=== PATIENT | male | born 1960 | race Caucasian/White ===

== ENCOUNTER 2024-12-12 20:23 | Inpatient (IN) | payer BC, SELFPAY ==
[2024-12-12] VITALS (10 sets, daily range): BP systolic 114–170; BP diastolic 72–89; BMI 24.2
--- NOTE | 2024-12-12 18:51 | ED.GENMED ---
History of Present Illness
General
Chief Complaint: Chest Pain
Source: patient
Exam Limitations: none
Time Seen by Provider: 12/12/24 18:51
Nursing documentation reviewed up to this point in time: agreed with
History of Present Illness
History of Present Illness:
Note:
CHIEF COMPLAINT(S)
Chest tightness and fatigue starting Friday night.
HISTORY OF PRESENT ILLNESS
The patient is a 64-year-old male who presents with a chief complaint of chest tightness and fatigue. The symptoms began on Friday night. The patient describes the chest tightness as a 'burning tightness' that persisted throughout the night. He
engaged in normal activities around the house but experienced increased fatigue today, mentioning feeling 'really feeling fatigue' and needing to shut down his activities. No current chest pain is reported. The patient did not take aspirin when the
symptoms began but mentioned taking Advil, which provided little relief. He has a history of atrial fibrillation and is under the care of a horticultural nursery assistant. The patient is currently not experiencing chest pain.
PAST MEDICAL AND SURIGICAL HISTORY
The patient has a known history of atrial fibrillation. He reports no history of diabetes, thyroid issues, blood disorders, or cancers.
CHRONIC MEDICAL CONDITIONS SIGNIFICANTLY AFFECTING CARE
Atrial fibrillation.
MEDICATIONS
The patient is currently taking a medication, metoprolol
PHYSICAL EXAM
General: Alert, no acute distress.
Skin: Warm, dry.
Head: Normocephalic, atraumatic.
Neck: Supple, trachea midline.
Eye, Ears, Nose and Throat: Oral mucosa moist.
Cardiovascular: Normal peripheral perfusion, No edema. S1,S2 no murmurs
Respiratory: Respirations are non-labored.
Gastrointestinal: Abdomen nondistended.
Back: Normal range of motion, Normal alignment.
Musculoskeletal: Normal range of motion, normal strength.
Neurological: Alert and oriented to person, place, time, and situation, No focal neurological deficit observed.
Psychiatric: Cooperative, appropriate mood & affect.
PROBLEM LIST
Acute problems:
- Chest tightness
- Fatigue
Chronic problems:
- Atrial fibrillation
PLAN
1. Administer aspirin and heparin.
2. Provide Berlinta 180 mg and aspirin 324 mg.
3. Communicate with the on-call horticultural nursery assistant for further evaluation and management.
DIFFERENTIAL DIAGNOSIS
The Differential Diagnosis includes, in no particular order and is not limited to:
1. Acute coronary syndrome
2. Myocardial infarction
3. Atrial fibrillation exacerbation
4. Pulmonary embolism
5. Costochondritis
6. Gastroesophageal reflux disease
7. Anxiety-related symptoms
8. Heart failure
9. Pericarditis
10. Aortic dissection
CARE-UPDATE
12/12/24 - 19:
Consulted with Dr. Costa, coverage specialist rn. labor supervisor activated. Administered Burlinta 180 mg, aspirin 324 mg, and heparin 5,000 units. Awaiting arrival of CathLab team and interventional cardiologists for further intervention.
EKG
My independent EKG interpretation is:
- Rhythm: Normal sinus rhythm
- Heart Rate: Not specified
- [place]: Normal axis
- QRS Duration: Normal
- Abnormalities Observed: ST elevation in leads II, III, aVF with reciprocal changes
Disposition:
SUMMARY OF ENCOUNTER
The patient, a 64-year-old male, was seen in the emergency department with symptoms of chest tightness and fatigue that began on Friday night. These symptoms led to the suspicion of an ST-elevation myocardial infarction (STEMI), confirmed by EKG
findings of ST elevation in leads II, III, aVF with reciprocal changes. The patients management included administering aspirin, heparin, and ticagrelor (Brilinta) to address cardiac concerns. The patient is currently pain-free and stable in
preparation for further intervention.
EMERGENCY TREATMENTS ADMINISTERED
Administered aspirin 324 mg, heparin 5,000 units intravenously, and ticagrelor 180 mg.
MANAGEMENT OF THE PATIENTS CARE WAS DISCUSSED WITH
Consulted with Dr. Costa, an coverage specialist rn, who activated the laborer wharf team for possible further intervention.
PLAN
Await the arrival of the CathLab team for potential intervention. Continue monitoring cardiac status and administer medications as needed.
MEDICATION RECONCILIATION
Administered medications:
- Aspirin 324 mg
- Heparin 5,000 units IV
- Ticagrelor 180 mg
MEDICAL DECISION MAKING
- Complexity of Data Reviewed: Chronic conditions affecting care include atrial fibrillation, and differential diagnosis considered includes acute coronary syndrome, myocardial infarction, atrial fibrillation exacerbation, pulmonary embolism,
costochondritis, gastroesophageal reflux disease, anxiety-related symptoms, heart failure, pericarditis, and aortic dissection.
- Data:
Category 1
My independent interpretation of EKG indicates ST elevation in leads II, III, aVF with reciprocal changes.
Category 3
Discussion of management with Dr. Costa, coverage specialist rn, including activation of the laborer wharf for further intervention.
-Risk:
Due to the high risk and complexity of the patients acute presentation and underlying conditions, admission and potential escalation of care were deemed necessary.
DIAGNOSIS
- ST-Elevation Myocardial Infarction (STEMI) - ICD-10 code: I21.0
Past History
Past History
ED Past Medical History: None
ED Past Surgical History: Other (Hernia repair)
Social History
Tobacco: Non-smoker
Alcohol: Occasional
Drug: None
Living: with family
Employment: Employed
Family History
Family History: CAD (Father); Negative Early CAD
Phy Exam
Physical Exam
Physical Exam:
.
Scores
Heart Score for Chest Pain Patients
STEMI patient?: Yes
Course
Orders/Labs/Results
Orders:
Orders
12/12/24 Breakfast
Cholesterol Lowering
At Your Request: Full Participation
Does patient need a safe tray?: No
Cholesterol Lowering: Sodium, 2 Gram
12/12/24 18:44
Electrocardiogram (*1) Urgent
Reason for Study: Chest Pain
12/12/24 18:45
EKG- Treatment ONCE
12/12/24 18:52
Cardiac Monitoring- Treatment ONCE
IV Insert/Care/Rem.- Treatment PRN
12/12/24 19:00
Complete Blood Count/With Diff Urgent
Comprehensive Metabolic Panel Urgent
Glycohemoglobin (HgbA1c) Urgent
Magnesium Urgent
PTT Urgent
Phosphorus Urgent
Prothrombin Time Urgent
Troponin I Urgent
12/12/24 20:00
Admit Patient As Directed
Co-Sign Provider:
Level of Care: Inpatient admission
Assign to:: IVU
Physician / Group: Igor/CASSI until 07:00 then DCA
Diagnosis: Late presentation STEMI.
Patient Condition: Fair
Reason for Hospitalization: Late presentation STEMI.
Expected length of stay greater than two midnights?: Yes
ELOS- Estimated Length of Stay in days: 3
I certify the patient meets the requirements for IP care: Yes
Reason for Overnight Stay: Standard of Care
Code Status As Directed
Resuscitation Status: Full Code
0.9% Sodium Chloride 1000 ml [Nss] 1,000 ml IV PER PROTOCOL
Infusion rate in mL/kg/hr:: 1.5
Infusion rate in mL/hr:: 111
Duration of infusion (hours):: 3
Acetaminophen [Tylenol] 650 mg PO Q4HPRN PRN
Fentanyl Citrate/Pf [Sublimaze] 50 mcg IV [id number] PRN
Midazolam HCl [Versed] 1 mg IV Q5MPRN PRN
Nitroglycerin Sublingual [Nitrostat (Sublingual)] 0.4 mg SL [id number] PRN
Oxycodone/Acetaminophen [Percocet 5/325] 1 tablet PO Q4HPRN PRN
Activity As Directed
Activity Level: Out of Bed- Ad Mehnaz
Activity Frequency: Ad Mehnaz
Development Manager Procedure As Directed
Cardiac Cath Procedure: cardiac catheterization
Notify MD As Directed
Notify physician if: immediately for chest pain or bleeding from access site(s)
Radial Artery Hemostasis Method As Directed
Instructions:: 3 mL out at 1 hour post placement of band
3 mL out at 1 1/2 hours post placement of band
3 mL out at 2 hours post placement of band
Off at 2 1/2 hours post placement of band
If any oozing or hemotoma occurs:: re-inflate band and call provider
Site Checks As Directed
Check access site for bleeding/hematoma: Yes
Comment: on arrival, Q15min x4, Q30min x2, Q1 hr x2, Q2 hr x2, Q4 hr or per
protocol
Vascular Checks As Directed
Location: distal to access site - pulse check
Frequency: Other
Comment: on arrival, Q15min x4, Q30min x2, Q1 hr x2, Q2 hr x2, Q4 hr or per protocol
Venous Foot Pumps As Directed
Location: Bilateral feet
Vital Signs As Directed
Frequency: Other
Additional Instructions:: on arrival, Q15min x4, Q30min x2, Q1 hr x2, Q2 hr x2, then Q4 hr or per unit
protocol
PRN Pain Medication Management As Directed
May give lesser potent ordered pain med per pt: Yes
preference::
Protocol:: Medication orders for pain may be administered in a
manner that supports deferring to patient preference
when the pt is:
- Requesting an ordered lesser potent pain medication.
Least to most potent pain medications are defined
as: acetaminophen < NSAID < tramadol < opioids
(morphine, oxycodone, hydromorphone).
- Requesting a lesser dose of the same medication IF
ORDERED.
- Requesting a less intrusive route of administration
if both routes are prescribed by the provider (PO <
IV).
12/12/24 20:01
DX Deep Vein Thrombosis Video Routine
12/12/24 20:09
Add On- LAB Routine
Tests Added?: HbA1c, Magnesium, Phosphorus.
Electrocardiogram (*1) Stat
Reason for Study: CAD
12/12/24 20:10
EKG PRN [ECG as needed] As Directed
ECG as needed for:: Chest Pain
Rhythm Change
12/12/24 21:00
Atorvastatin [Lipitor] 40 mg PO QPM
12/13/24 06:00
Echo 2D MMode Color/Doppler Routine
Reason for Study: Delayed presentation of STEMI.
Electrocardiogram (*1) IN AM
Reason for Study: CAD
Basic Metabolic Panel IN AM
Cardiovascular Evaluation IN AM
Complete Blood Count/No Diff IN AM
12/13/24 08:00
Aspirin Low Dose EC [Aspir Low (Enteric Coated)] 81 mg PO DAILY
Cholecalciferol (Vitamin D3) [VITAMIN D3 (cholecalciferol)] 25 mcg PO DAILY
Clopidogrel Bisulfate [Plavix] 75 mg PO DAILY
Cyanocobalamin [Vitamin B-12] 1,000 mcg PO DAILY
Metoprolol Xl [Toprol Xl] 12.5 mg PO DAILY
Valacyclovir HCl [Valtrex] 250 mg PO DAILY
12/14/24 06:00
Basic Metabolic Panel IN AM
Abnormal Lab Results
12/12/24
19:00
WBC 11.5 H 10^3/uL
(4.8-10.8)
MCH 32.0 H pg
(27.0-31.0)
Absolute Neuts (auto) 8.9 H 10^3/uL
(1.4-6.5)
Absolute Monos (auto) 1.0 H 10^3/uL
(0.1-0.6)
Neutrophils % 77.8 H %
(42.2-75.2)
Lymphocytes % 12.7 L %
(20.5-51.1)
Glucose 126 H mg/dl
(70-99)
AST 193 H U/L
(17-59)
Troponin I 17.800 H* ng/ml
12/12/24 19:00
12/12/24 19:00
Vital Signs
Initial and Last Documented VS:
Initial Vital Signs
Pulse Resp BP
95 20 170/88
12/12/24 18:53 12/12/24 18:53 12/12/24 18:53
Last Documented Vital Signs
Temp Pulse Resp BP Pulse Ox
98.7 F 84 20 114/73 96
12/12/24 22:43 12/12/24 22:45 12/12/24 22:45 12/12/24 22:45 12/12/24 22:43
*Pulse Oximetry
SaO2: 98
Oxygen Mode of Delivery: Room air
Patient hypoxic: no
*Critical Care Note
Total Time (30-74mins, 75-104mins- exclusive of procedures): Not Applicable
ED Attending Note
-
Portions of this chart may have been created with voice recognition software.� Occasional wrong word or��sound alike� substitutions may have occurred due to the inherent limitations of voice recognition software.
Discharge Plan
Departure
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
Date of Disposition: 12/12/24
Time of Disposition: 19:01
Admit to: labor supervisor
Presentation/result/management discussed w/ accepting MD/DO: Interventional cardiology
Patient with high blood pressure during this ER visit?: Yes
Condition: Good
Discharge Problem:
ST elevation (STEMI) myocardial infarction
Interventions
Interventions:
*Risk Screen - Suicide Last Done: 12/12/24 18:53
*General Assessment Last Done: 12/12/24 19:12
*Neglect/Abuse Screening Last Done: 12/12/24 19:12
*ED- Fall Risk Assessment Last Done: 12/12/24 19:12
*ED COVID-19 Vaccine History Last Done: 12/12/24 19:15
*Nursing Disposition Last Done: 12/12/24 19:25
ED- Cardiac Assessment Last Done: 12/12/24 19:12
Discharge Date and Time
Discharge Date/Time: 12/12/24 19:25
[2024-12-12 19:10] LABS: Hematocrit 48.0 % (39.0-52.0); Hemoglobin 17.1 g/dL (13.0-18.0); Mean Corp Hgb Conc. 35.6 g/dL (33.0-37.0); Mean Corpuscular Volume 89.9 fL (80.0-94.0); Nucleated Red Blood Cells % 0 % (-); Platelet Count 214 10^3/uL (130-400); Red Cell Dist. Width 11.9 % (11.5-14.5)
[2024-12-12 19:20] LABS: INR 1.04; PT 13.9 Sec (11.4-14.6)
[2024-12-12 19:21] LABS: ALT (SGPT) 38 U/L (0-50); APTT 27.8 Sec (23.4-35.0); AST (SGOT) 193 U/L (17-59); Albumin 4.6 g/dl (3.5-5.0); Alkaline Phosphatase 73 U/L (38-126); Blood Urea Nitrogen 17 mg/dl (9-20); Calcium 9.7 mg/dl (8.4-10.2); Carbon Dioxide 27 mmol/L (22-30); Chloride 106 mmol/L (98-107); Glucose 126 mg/dl (70-99); Potassium 3.9 mmol/L (3.5-5.1); Sodium 139 mmol/L (135-145); Total Protein 7.8 g/dl (6.3-8.2); eGFR > 60.00
--- NOTE | 2024-12-12 19:28 | HPS.HSE ---
Family Physician
-
Family Physician:
Chief Complaint
-
Resolved chest pain.
History of Present Illness
64 y/o male with prior PAF s/p ablation, not currently on therapeutic anticoagulation, presenting with resolved chest pain. The patient reports onset of a burning chest pressure two days prior to presentation (Friday evening, presenting Friday
evening). The patient believed it was anxiety, as he has had a history of this in the past, though he admits that he was not particularly anxious. The patient tolerated the pain and used deep breathing exercises to treat what he believed to be
anxiety. He slept poorly last evening, finally getting to sleep around 5 AM after consuming some ibuprofen. He took a nap earlier to day and his chest pain resolved after an additional dose of ibuprofen. He subsequently felt fatigued for the
entire day. After recounting the events to his , the patient decided to be evaluated at [facility]. In the ER. EKG shows inferior ST elevation with Q waves in lead III. The patient is chest pain free at the time of presentation. He denies SOB,
palpitations, syncope or presyncope.
The patient is very physically active and maintains a healthy diet and exercise regimen. He denies allergies, GI/ bleeding and adverse reaction to contrast.
Medical History
Past Medical History
Past Medical History: Reports Arrhythmia (PAF)
Past Surgical History: Reports Cardiac (PVI (2020).)
Social History
Tobacco: Non-smoker
Alcohol: None
Drug: None
Personal:
Living: With Family
Family History
Family History: Not pertinent
Allergies / Home Medications
Allergies reflects when Allergies were last updated in [facility].
Home Medications with original date entered in [facility]
Allergy/Medication List:
Home medications:
Metoprolol succinate 12.5 mg daily.
Valacyclovir 500 mg daily.
CoQ 10
B Vitamin
Glucosamine
Vit D
Allergies:
NKDA.
Review of Systems
-
History Source: Patient and Family
Constitutional: Reports Fatigue
EENT: Reports No Symptoms
Respiratory: Reports No Symptoms
Cardiac: Reports Chest Pain (Resolved.)
Abdomen/GI: Reports No Symptoms
: Reports No Symptoms
Musculoskeletal: Reports No Symptoms
Neurological: Reports No Symptoms
Physical Exam
Vital Signs
Vital Signs
Temp Pulse Resp BP Pulse Ox
37.7 C 97 18 153/89 98
12/12/24 18:59 12/12/24 19:00 12/12/24 19:00 12/12/24 19:00 12/12/24 19:05
Physical Exam
General: Well Developed, Well Nourished, No Apparent Distress, Comfortable and Conversant
HEENT: NormoCephalic, Anicteric, Moist mucous membranes, Atraumatic, Good Dentition, PERRLA, [place] Conjunctivae, No Ptosis, Nose Appears Normal and Ears Appear Normal
Respiratory: Clear and Non Labored Respirations
Cardiac: S1/S2 and Regular Rhythm
Breast: Deferred by me
GI: Soft, Non Tender, Non Distended and Normal Bowel Sounds
Rectal: Deferred by Provider
Genito-urinary: Deferred by me
Musculoskeletal: No Clubbing, No Cyanosis and No Edema
Skin: Warm and Dry
Neuro: AO x 3
Psych: Calm and Intact Judgment/Insight
Laboratory Results
-
12/12/24 19:00
12/12/24 19:00
Laboratory Results
PT 13.9 Sec (11.4-14.6) 12/12/24 19:00
INR 1.04 12/12/24 19:00
APTT 27.8 Sec (23.4-35.0) 12/12/24 19:00
Total Bilirubin 1.1 mg/dl (0.2-1.3) 12/12/24 19:00
AST 193 U/L (17-59) H 12/12/24 19:00
ALT 38 U/L (0-50) 12/12/24 19:00
Alkaline Phosphatase 73 U/L (38-126) 12/12/24 19:00
Data Reviewed
-
Medical Tests (Nuc Med, Echo, EKG etc): Image Personally Visualized and interpreted and Report Reviewed by me
Lab Data: Labs Reviewed by me
Old Records: Reviewed
Impression/Plan
-
Impression/Plan: 64 y/o male with history of PAF s/p prior PVI, not currently on therapeutic anticoagulation, presenting with delayed presentation inferior STEMI.
#Inferior STEMI
-Delayed presentation, currently chest pain free.
-We will proceed with urgent coronary angiography for assessment of coronary anatomy.
-If the patient has > ESTHER 0 flow in the culprit artery, we will proceed with PCI. However, if the patient's artery is completely occluded, given his resolved chest pain, we will consider the infarct completed and defer any revascularization due
to a net deleterious effect (OAT trial).
-Risks/benefits reviewed with patient and .
-Consent is signed and on the chart.
#PAF
-Currently in NSR.
-Rate/Rhythm control with prior ablation, metoprolol succinate.
-CHADS2-Vasc was previously 0, it will probably be at least 1 (vascular disease).
-No current role for therapeutic anticoagulation.
#PPx
-SCD's for DVT/VTE.
-No role for PPI at this time.
#Dispo
-To ammunition assembly laborer, then likely IVU.
-Full code.
[2024-12-12 19:37] LABS: Troponin I 17.800 ng/ml
--- NOTE | 2024-12-12 20:15 | ITS.CL.CATH ---
Manager Process Improvement - Catheterization
Cardiac Catheterization
Procedure Report:
CARDIAC CATHETERIZATION REPORT
Date of Procedure: 12/12/2024
Referring: Hollis Royal D.O.
INDICATION: Late presentation inferior ST elevation myocardial infarction.
PROCEDURE:
1. Left heart catheterization.
2. Coronary angiography.
3. Left ventriculography.
A total of 15 minutes of procedural/moderate sedation was utilized. An independent manager medical writing was present to assist with and help manage the patient's level of consciousness and physiologic status.
ACCESS:
1. 6 [place] right radial artery using a modified Seldinger technique.
CATHETERS:
1. 5 [place]ian JR4.
2. 5 [place]ian JL 3.5.
3. 5 [place]ian angled pigtail.
HEMODYNAMIC DATA
Weight (kg): 73.9
AO (s/d/x, mmHg): 128/80/104
LV (s/x mmHg): 128/5
LEFT VENTRICULOGRAPHY: Performed in an [place] projection. Normal left ventricular size. There is severe hypokinesis of a focal area of the inferolateral wall with normal to hyperdynamic function throughout the remainder of the left ventricle.
Global systolic function is preserved. Left ventricular ejection fraction estimated at 60-65%. There is no mitral valve regurgitation. There is no aortic valve insufficiency. The aortic root, ascending aorta and visualized descending aorta
appear normal.
CORONARY ANGIOGRAPHY
Dominance: Right.
Left Main: Normal size, bifurcating vessel. There is no coronary artery disease.
LAD: Normal size vessel giving rise to 2 diagonals before wrapping around the apex and supplying the distal inferior interventricular septum. There are minor luminal irregularities in the mid vessel. There is a 180 degree hairpin turn
associated with a small myocardial bridge in the distal vessel.
Ramus: Congenitally absent.
Circumflex: Normal size, nondominant vessel giving rise to 2 obtuse marginals. OM1 is a medium size vessel supplying the superior aspect of the lateral wall. OM 2 is a slightly larger vessel supplying the inferolateral wall. The vessel is
acutely occluded in its proximal margin with ESTHER 0 flow.
RCA: Normal size, dominant vessel with notable tortuosity in the proximal margin and a near [place] cro[place] origin. The RPDA supplies the proximal half of the inferior interventricular septum. There is no coronary artery disease.
INTERVENTION(S)
None.
Closure Device: Vascular band.
Radiation (mGy): 194.21
DAP (cm2.Gy): 13.8419
Fluoroscopy time (minutes): 2.3
CONCLUSIONS
1. Right dominant circulation with occlusion of a medium sized OM 2 with ESTHER 0 flow. The patient has been chest pain-free for the last 12 hours. This is consistent with a completed circumflex infarct.
2. Normal left ventricular size with hypokinesis of the mid to distal inferolateral wall (consistent with culprit territory) but preserved global systolic function. LV ejection fraction estimated at 60-65%.
3. Normal filling pressures (LVEDP = 5 mmHg at 73.9 kg).
RECOMMENDATIONS:
1. Expectant management after cardiac catheterization via right radial approach.
2. Limited weight bearing on the right wrist for one week.
3. Given the delayed presentation of the infarct with ESTHER 0 flow in the absence of chest pain, this is consistent with a completed infarct. Revascularization at this time is contraindicated.
4. We will proceed with medical management of this infarct. Dual antiplatelet therapy with aspirin and clopidogrel for at least 12 months, followed by aspirin indefinitely.
5. Aggressive secondary prevention with high-dose, high potency statin. Goal LDL <55. Fasting lipid panel pending.
6. Echocardiogram ordered and pending.
7. Referral to cardiac rehab.
Copy to: Cris Rich M.D., Lissy Terrell M.D.
Donald Costa DO, FACC, FACP
[2024-12-12 20:45] LABS: Magnesium 2.0 mg/dl (1.6-2.3)
[2024-12-12] MEDS: LIPITOR 40 MG PO (22:16)
[2024-12-12] MEDS: MELATONIN 5 MG PO (22:17)
[2024-12-13] VITALS (10 sets, daily range): BP systolic 117–138; BP diastolic 71–86
--- NOTE | 2024-12-13 02:06 | PTCARENOTE ---
Received pt into room 2243 from labourers RN's @ approx. 2014. pt placed on tele, SR w/ HR in the 70's. pt denies any CP or SOB at this time. TR band on, positive radial pulses, sating 98%. Educated pt on activity restrictions. pt verbalizes
understanding. Admission completed--see worklist. pt requesting sleeping aid. Eye mask and ear plugs provided, reached out to Vick Lees NP. Order for Melatonin obtained. Administered per order--see JUN. Plan of care reviewed with pt. pt
oriented to room and call joy. EKG obtained. CAD booklet and education provided. Call joy within reach.
--- NOTE | 2024-12-13 02:07 | PTCARENOTE ---
TR band removed at 5. Dressing placed on pt. C.D.I No bleeding or hematoma noted at this time. pt reminded of activity restrictions on right hand.
[2024-12-13] MEDS: TYLENOL 650 MG PO (04:49)
[2024-12-13 04:55] LABS: Hematocrit 43.5 % (39.0-52.0); Hemoglobin 15.9 g/dL (13.0-18.0); Mean Corp Hgb Conc. 36.6 g/dL (33.0-37.0); Mean Corpuscular Volume 90.4 fL (80.0-94.0); Platelet Count 199 10^3/uL (130-400); Red Cell Dist. Width 11.9 % (11.5-14.5)
[2024-12-13 05:23] LABS: Blood Urea Nitrogen 12 mg/dl (9-20); Calcium 8.9 mg/dl (8.4-10.2); Carbon Dioxide 24 mmol/L (22-30); Chloride 108 mmol/L (98-107); Estimated Creatinine Clearance 109 ml/min; Glucose 127 mg/dl (70-99); HDL Cholesterol 61 mg/dl; LDL Cholesterol, Calculated 65 mg/dl; Potassium 3.9 mmol/L (3.5-5.1); Sodium 137 mmol/L (135-145); Very Low Density Lipoprotein 12 mg/dl (0-30); eGFR > 60.00
[2024-12-13] MEDS: PLAVIX 75 MG PO (08:13)
[2024-12-13] MEDS: VITAMIN D3 (cholecalciferol) 25 MCG PO (08:13)
[2024-12-13] MEDS: VITAMIN B-12 1000 MCG PO (08:13)
[2024-12-13] MEDS: ASPIR LOW (ENTERIC COATED) 81 MG PO (08:13)
[2024-12-13] MEDS: TOPROL XL 12.5 MG PO (08:13)
[2024-12-13 10:03] LABS: Troponin I 17.200 ng/ml
[2024-12-13 10:39] LABS: Glycohemoglobin (HgbA1c) 5.6 % (4.0-5.6)
--- NOTE | 2024-12-13 14:37 | CM ---
spoke to pt in room, he is prv indep lives with his in a 2 story home with 1 step to enter. he denies any dc planning needs. he has a cane and a walker to use when needed. plan is for dc to home when medically stable.
--- NOTE | 2024-12-13 15:20 | W.PN.CARDCBS ---
Addendum entered and electronically signed by Katlyn Pineda MD 12/13/24 21:54:
I saw and examined the patient.
The Flasher Adjuster's note was reviewed and I agree with the note.
Comment: Patient with no acute overnight events. Doing well, ambulating without any difficult. Remains CP free. He tells me he had stuttering episodes of CP Friday into friday. He thought it was related to underlying anxiety. He did yard work and
pushed through sxs he tells me coming into ED mainly bc of sxs not subsiding however CP free in ED.
Vitals and labs reviewed. Hgb stable. Creat stable. Trop peaked 17.8
On exam pt is well appearing, NAD, awake, alert and oriented x 3, RR, normal S1 and S2. No m/r/g, abd soft, NT, Nd +BS, warm ext. No LE edema. No e/o hematoma or bruit at access site.
Echo with overall preserved LV fxn. LVEF normal.
Reccomendations:
1. DAPT with ASA and Plavix x 12 months in setting of ACS. High intensity statin with LDL goal less than 55. BB as tolerated.
2. Aggressive management of secodnary risk factors.
3. Cont to monitor for another 24hrs and start discharge planning.
4. We dicussed role of cardiac rehab as outpatient.
5. We discussed role of Mediterranean diet and staying physically active to maintain normal BMI
6. Thankfully overall presevred LV fxn.
7. Outpt cardiology follow up with be arranged upon discharge.
Anticipate dc in next 24hrs if no new changes. All questions and concerns addressed with bedside.
Katlyn Pinead MD, [facility], PSYCHIATRIC
total time spent: 52mins
Original Note:
Today's Communication / Plan
-
New to aspirin and Plavix
New to atorvastatin
EF preserved by echo
Impression / Plan
-
PCP: Dr. Lissy Terrell
Cardiology: Dr. MAY Rich
Impression:
Admitted with chest pain and abnormal EKG 12/12/2024
Late presentation of inferior wall MO 12/12/24
Symptoms started 12/10/2024 PM and initial troponin 17.8
CAD with complete occlusion of OM 2 by cardiac cath 12/12/2024
Preserved EF 60 to 65% by echo 12/13/2024
Paroxysmal A-fib s/p PVI 04/2020
Not chronically anticoagulated due to low [id number] score and patient decision
Echo 12/13/24: Mid inferolateral segment is akinetic, EF 60 to 65%
Plan:
-Patient came to the ED ER yesterday with chest pain that started on Friday and was admitted with suspected late presentation MO. Patient had symptoms of chest pain starting on Friday evening and they were somewhat similar to symptoms he has had
with anxiety in the past. Patient finally came to the ER with ongoing symptoms and insomnia on Friday evening and his initial troponin was 17.8 and the initial ECG was read as an inferior STEMI.
-Patient had a cardiac cath 12/12/2024 and there was evidence of acute occlusion in the OM 2 with ESTHER 0 flow and patient had been chest pain free for 12 hours which was c/w completed circumflex infarct
-Patient is new to aspirin 81 mg daily and Plavix 75 mg daily
-Outpatient dose of Toprol XL 12.5 mg daily has been continued
-Echo from 12/13/2024 is reviewed and summarized above by me. I also reviewed the echo findings with the patient
-LDL 65 and patient is new to atorvastatin 40 mg daily
-Cardiac rehab consulted by me on 12/13/2024
-HgbA1c is 5.6% on labs reviewed by me 12/12/2024
-Telemetry reviewed by me and is SR.
-Patient has a history of paroxysmal A-fib, but has been in SR this admission. Patient had previous PVI 04/2020 and is not chronically anticoagulated due to low [id number] score and patient decision based on his overall low burden of symptomatic
A-fib.
Progress Note - Pastrycook'S Assistant
Subjective
Date of Service: December 13, 2024
He feels well aside from being tired given most of his events happen late night
Objective
Labs:
12/13/24 04:42
12/13/24 04:42
Labs
Hgb 15.9 g/dL (13.0-18.0) 12/13/24 04:42
Hct 43.5 % (39.0-52.0) 12/13/24 04:42
Plt Count 199 10^3/uL (130-400) 12/13/24 04:42
PT 13.9 Sec (11.4-14.6) 12/12/24 19:00
INR 1.04 12/12/24 19:00
APTT 27.8 Sec (23.4-35.0) 12/12/24 19:00
Sodium 137 mmol/L (135-145) 12/13/24 04:42
Potassium 3.9 mmol/L (3.5-5.1) 12/13/24 04:42
BUN 12 mg/dl (9-20) 12/13/24 04:42
Creatinine 0.7 mg/dL (0.7-1.3) 12/13/24 04:42
Glucose 127 mg/dl (70-99) H 12/13/24 04:42
Troponins
12/12/24 12/13/24
19:00 09:17
Troponin I 17.800 H* 17.200 H*
Vital Signs and I&O:
Vital Signs
Temp Pulse Resp BP Pulse Ox
98.7 F 89 20 133/73 95
12/13/24 15:09 12/13/24 08:13 12/13/24 15:09 12/13/24 08:13 12/13/24 15:09
Vital Signs
Temp Pulse Resp BP Pulse Ox
98.7 F 89 20 133/73 95
12/13/24 15:09 12/13/24 08:13 12/13/24 15:09 12/13/24 08:13 12/13/24 15:09
Intake & Output
12/11/24 12/12/24 12/13/24 12/14/24
06:59 06:59 06:59 06:59
Intake Total 573 / 573
Output Total 675 / 675
Balance -102 / -102
Physical Exam
Physical Exam
GEN: NAD. AAOx3
LUNGS: RA. No wheeze
CV: SR on tele. Reg, no murmur
EXT: No edema
NEURO: Gross non-focal
SKIN: No rash
[2024-12-13] MEDS: LIPITOR 40 MG PO (17:48)
--- NOTE | 2024-12-13 18:58 | PTCARENOTE ---
~9655-1471: Handoff report received from nightshift RN. Pt AOx4, NSR 70s-80s on tele, SBP 130s, RA satting 95%. Pt denies pain at this time. Independent in room and ambulating in halls. +2/2 pulses, no edema. R radial site CDI no oozing or hematoma.
All needs met at this time, call joy within reach.
~[id number]: Echo completed at bedside per order. Troponin drawn and sent to lab.
~4997-8587: Patient ambulating independently in [place]. VSS at this time. No complaints at this time. All needs met, call joy within reach.
~5606-9859: patient showered indpendently. VSS, no pain at this time. Patient requesting something to help him sleep, he sates 'melatonin doesn't work for me. I usually take advil but i'm assuming I cant have that.' Elaine York made aware, no new
orders at this time.
~5484-1600: Family visiting. Patient independent in room. VSS. No c/o pain at this time. All needs met, call joy within reach. Handoff report given to nightshift RN.
--- NOTE | 2024-12-14 01:34 | PTCARENOTE ---
Received pt at change of shift resting in bed. SR on tele, HR 70's-80's. Captured VS from hi, 0700 on. pt denies any CP or SOB at this time. Right radial site C.D.I. No bleeding or hematoma noted at this time. Encouraged pt to call RN with any
questions/concerns. Call joy within reach.
[2024-12-14 04:23] VITALS: BP 122/66
[2024-12-14] MEDS: TYLENOL 650 MG PO (04:56)
[2024-12-14 05:22] LABS: Blood Urea Nitrogen 12 mg/dl (9-20); Calcium 9.3 mg/dl (8.4-10.2); Carbon Dioxide 25 mmol/L (22-30); Chloride 106 mmol/L (98-107); Estimated Creatinine Clearance 96 ml/min; Glucose 109 mg/dl (70-99); Potassium 4.0 mmol/L (3.5-5.1); Sodium 138 mmol/L (135-145); eGFR > 60.00
[2024-12-14 05:46] LABS: Troponin I 14.200 ng/ml
--- NOTE | 2024-12-14 07:38 | W.PN.CARDCBS ---
Addendum entered and electronically signed by Harini Nassar PA-C 12/14/24 14:52:
[id number]
Addendum entered and electronically signed by Donald Silver MD 12/14/24 09:36:
I saw and examined the patient.
The WHARF TENDER HEAD or PA's note was reviewed and I agree with the note.
Comment: General: Well developed, well nourished in NAD.
Neck: Supple, no JVD, HJR, carotids +2 B/L, no bruits bilaterally.
Heart: Non displaced PMI, RRR, no murmurs, No S3, S4, no rubs.
Lungs: Clear to auscultation bilaterally, no wheeze, rhonchi, rubs bilaterally,
normal expiratory phase.
Extremities: No clubbing, cyanosis or edema bilaterally.
Neuro: Grossly nonfocal, awake, alert and oriented x3.
Stable cardiology status for discharge. Ambulating without chest pain. Continue aspirin, Plavix, Lipitor, Toprol. He will enter cardiac rehab. Follow-up has been arranged
Original Note:
Today's Communication / Plan
-
for DC today
continue asa, plavix, lipitor, toprol
cardiac rehab
will arrange OP cardiac follow up
Impression / Plan
-
PCP: Dr. Lissy Terrell
Cardiology: Dr. MAY Rich
Impression:
Admitted with chest pain and abnormal EKG 12/12/2024
Late presentation of inferior wall RI 12/12/24
Symptoms started 12/10/2024 PM and initial troponin 17.8
CAD with complete occlusion of OM 2 by cardiac cath 12/12/2024
Preserved EF 60 to 65% by echo 12/13/2024
Paroxysmal A-fib s/p PVI 04/2020
Not chronically anticoagulated due to low [id number] score and patient decision
Echo 12/13/24: Mid inferolateral segment is akinetic, EF 60 to 65%
Plan:
-Patient came to the ED with chest pain that started on Sunday 12/10 and was admitted with suspected late presentation RI. Reports symptoms were similar to his anxiety symptoms so he 'pushed through.' Patient finally came to the ER with ongoing
symptoms and insomnia on Friday evening and his initial troponin was 17.8 and the initial ECG was read as an inferior STEMI.
-Patient had a cardiac cath 12/12/2024 and there was evidence of acute occlusion in the OM 2 with ESTHER 0 flow. as patient had been chest pain free for 12 hours c/w completed circumflex infarct and no intervention performed
-continue asa, plavix started this admission
-Outpatient dose of Toprol XL 12.5 mg daily has been continued
-echo with preserved EF and inferolateral segment akinetic, reviewed with patient 12/14
-LDL 65. started on lipitor 40mg QPM
-Cardiac rehab consult
-HgbA1c 5.6%
-in SR overnight on review of tele
-Patient has a history of paroxysmal A-fib, but has been in SR this admission. Patient had previous PVI 04/2020 and is not chronically anticoagulated due to low [id number] score and patient decision based on his overall low burden of symptomatic
A-fib.
-ambulate and will plan for DC to home this afternoon
-d/w nursing
Progress Note - Code Official
Subjective
Date of Service: December 14, 2024
No issues overnight. Reports rested well
Objective
Labs:
12/13/24 04:42
12/14/24 04:30
Labs
Hgb 15.9 g/dL (13.0-18.0) 12/13/24 04:42
Hct 43.5 % (39.0-52.0) 12/13/24 04:42
Plt Count 199 10^3/uL (130-400) 12/13/24 04:42
PT 13.9 Sec (11.4-14.6) 12/12/24 19:00
INR 1.04 12/12/24 19:00
APTT 27.8 Sec (23.4-35.0) 12/12/24 19:00
Sodium 138 mmol/L (135-145) 12/14/24 04:30
Potassium 4.0 mmol/L (3.5-5.1) 12/14/24 04:30
BUN 12 mg/dl (9-20) 12/14/24 04:30
Creatinine 0.8 mg/dL (0.7-1.3) 12/14/24 04:30
Glucose 109 mg/dl (70-99) H 12/14/24 04:30
Troponins
12/12/24 12/13/24 12/14/24
19:00 09:17 04:54
Troponin I 17.800 H* 17.200 H* 14.200 H*
Vital Signs and I&O:
Vital Signs
Temp Pulse Resp BP Pulse Ox
98.5 F 70 18 122/66 98
12/14/24 07:27 12/14/24 06:00 12/14/24 07:27 12/14/24 04:23 12/14/24 07:27
Vital Signs
Temp Pulse Resp BP Pulse Ox
98.5 F 70 18 122/66 98
12/14/24 07:27 12/14/24 06:00 12/14/24 07:27 12/14/24 04:23 12/14/24 07:27
Intake & Output
12/11/24 12/12/24 12/13/24 12/14/24
07:59 07:59 07:59 07:59
Intake Total 573 / 573 240 / 240
Output Total 675 / 675
Balance -102 / -102 240 / 240
Physical Exam
Physical Exam
GEN: No distress, awake, alert, oriented x3
HEENT: supple, anicteric, mmm, eomi
LUNGS: CTA B/L, no wheezes/rales
CV: Reg, S1/S2, no murmur
ABD: soft, BS+, NT/ND
EXT: No cyanosis, clubbing, edema
NEURO: Gross non-focal
SKIN: Warm, pink, dry. No rash. R wrist site c/d/i
[2024-12-14] MEDS: ASPIR LOW (ENTERIC COATED) 81 MG PO (08:13)
[2024-12-14] MEDS: VITAMIN D3 (cholecalciferol) 25 MCG PO (08:13)
[2024-12-14] MEDS: PLAVIX 75 MG PO (08:13)
[2024-12-14] MEDS: TOPROL XL 12.5 MG PO (08:13)
[2024-12-14] MEDS: VITAMIN B-12 1000 MCG PO (08:14)
--- NOTE | 2024-12-14 08:32 | W.DS.TRANS ---
DC Summary - Autoglazier
-
Discharge Instructions:
Sleep Apnea Risk Low
Discharge Diagnosis/Procedures late presentation MD with OM2 occlusion
Diet Low Cholesterol
Activity No strenuous activity
Additional Activity no heavy lifting greater than 10 pounds for 1
week
Driving Restrictions No driving for 24 hours
Other Services Cardiac Rehab
Instructions:
Stand-Alone Forms: DC Instructions- Cath/EP Lab
Changes to Home Medications: Yes
Discharge Medications:
DC Medications w/original date entered in [employer]
cholecalciferol (vitamin D3) 25 mcg (1,000 unit) tablet 1,000 unit PO DAILY 11/08/11
coenzyme [id number] E 100 mg-100 unit capsule 1 cap PO DAILY 11/08/11
valacyclovir 500 mg tablet 250 mg PO DAILY 01/16/19
Fisetin 100 mg PO DAILY 04/25/20
cyanocobalamin (vitamin B-12) 1,000 mcg tablet 1,000 mcg PO DAILY 04/25/20
metoprolol succinate 25 mg tablet,extended release 24 hr 12.5 mg PO DAILY 12/12/24
aspirin 81 mg tablet,delayed release 81 mg PO DAILY #30 tabs 12/14/24
atorvastatin 40 mg tablet 40 mg PO QPM #30 tabs 12/14/24
clopidogrel 75 mg tablet 75 mg PO DAILY #30 tabs 12/14/24
Home Medication Changes
aspirin, plavix, and lipitor are new
Pending Results: No
--- NOTE | 2024-12-14 13:15 | PTCARENOTE ---
~[id number]: Handoff report received from nightshift RN. Pt AOx4, NSr on tele 70s, SBP 100s, RA satting 98%. Pt denies pain at this time. Independent in room and ambulating around unit as well. Cardiac rehab in to speak with patient about their
services, all questions answered. Patient currently with d/c orders, however a ride is not available until about 1200. All needs met at this time, call joy within reach.
~[id number]: Patient pharmacy was in the system wrong. Preferred pharmacy was edited in system and feeder worker power unit operator called [facility] [place], [place].
~[id number]: Patient indpenedent and ambulating around unit. arrived and d/c paperwork reviewed, all questions answered. VSS. Patient dc'd in stable condition.
== END 2024-12-14 13:15 | disposition home or self-care (01) | DRG 282 ==
LOC: IVU 20:23
PROVIDERS: Nurse Practitioner Family; ADMITTING PHYSICIAN Internal Medicine Cardiovascular Disease; ATTENDING PHYSICIAN Nuclear Medicine Nuclear Cardiology; EMERGENCY PHYSICIAN Emergency Medicine
PROC: 4A023N7 Measurement of Cardiac Sampling and Pressure, Left Heart, Percutaneous Approach (ICD-10-PCS; 2024-12-12)
PROC: B2151ZZ Fluoroscopy of Left Heart using Low Osmolar Contrast (ICD-10-PCS; 2024-12-12)
PROC: B2111ZZ Fluoroscopy of Multiple Coronary Arteries using Low Osmolar Contrast (ICD-10-PCS; 2024-12-12)
DX: I21.19 ST elevation (STEMI) myocardial infarction involving other coronary artery of inferior wall (principal); I25.10 Atherosclerotic heart disease of native coronary artery without angina pectoris; I48.0 Paroxysmal atrial fibrillation; F41.9 Anxiety disorder, unspecified; Z79.02 Long term (current) use of antithrombotics/antiplatelets; Z82.49 Family history of ischemic heart disease and other diseases of the circulatory system; Z79.899 Other long term (current) drug therapy
CPT/HCPCS: 80048; 80053; 80061; 83036; 83735; 84100; 84484; 85025; 85027; 85610; 85730; 93005; 93306; 93458; 99152; 99285; C1894; Q9967